=== PATIENT | male | born 1970 | race Two or more races ===

== ENCOUNTER 2020-09-27 00:38 | Emergency (ER) | payer SELFPAY ==
[~2020-09-27] VITALS: Ht 172.7 cm; Wt 81.6 kg
[2020-09-27 00:40] VITALS: BP 147/90
--- NOTE | 2020-09-27 01:40 | NUR ---
C/O "I HAVE A CYST IN THE BACK OF MY NECK X1 WEEK." AMBULATORY TO BED 2. WILL CONT TO MONITOR ,
[2020-09-27] MEDS ORDERED: LIDOCAINE /MPF 1% VIAL 5 ML VIAL ONE (01:45)
[2020-09-27] MEDS ORDERED: CEFTRIAXONE 1 G VIAL ONE (01:45)
[2020-09-27] MEDS ORDERED: CEFTRIAXONE 1 G VIAL IM ONE (02:00)
== END 2020-09-27 02:07 | disposition home or self-care (01) ==
LOC: ER 00:41
DX: L72.8 Other follicular cysts of the skin and subcutaneous tissue (principal)
CPT/HCPCS: 96372; 99283; J0696; J3490